=== PATIENT | female | born 2005 | race Caucasian/White ===

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

== ENCOUNTER 2023-07-22 13:58 | Emergency (ER) | payer OTHER ==
[2023-07-22] MEDS ORDERED: diphenhydrAMINE 50 MG/ML VIAL ONE (14:35)
[2023-07-22] MEDS ORDERED: Metoclopramide HCl 10 MG (2 mL) VIAL ONE (14:36)
[2023-07-22] MEDS ORDERED: Sodium Chloride 0.9% 1,000 ML ONE (14:36)
[2023-07-22 14:45] LABS: BHCG - Serum Negative (NEGATIVE); Pregs Control Bar Appear? YES (CONTROL BAR)
[2023-07-22] MEDS ORDERED: Ketorolac Tromethamine 30 MG (1 mL) VIAL ONE (15:31)
[2023-07-22] MEDS ORDERED: Ondansetron PF 4 MG/2 ML Vial ONE (16:25)
[2023-07-22] MEDS ORDERED: HYDROcodone/Acetaminophen 10/325 mg Tablet ONE (16:25)
[2023-07-22] MEDS ORDERED: Dexamethasone 4 mg/ml Vial ONE (16:25)
== END 2023-07-22 16:50 | disposition home or self-care (01) ==
LOC: NAV ERS 13:58
DX: G43.909 Migraine, unspecified, not intractable, without status migrainosus (principal); R11.0 Nausea; F17.290 Nicotine dependence, other tobacco product, uncomplicated
CPT/HCPCS: 84703; 94760; 96374; 96375; J1100; J1200; J1885; J2405; J2765; J7050

== ENCOUNTER 2023-10-14 20:27 | Emergency (ER) | payer OTHER ==
[2023-10-14 21:14] LABS: SARS-CoV-2 E Target Negative; SARS-CoV-2 N2 Target Negative; SARS-CoV-2 NAA Rapid Test Not Detected (NotDetected); SARS-CoV-2 RdRP gene Negative
[2023-10-14] MEDS ORDERED: Ondansetron ODT 4 MG TAB ONE (21:27)
== END 2023-10-14 21:35 | disposition home or self-care (01) ==
LOC: NAV ERS 20:27
DX: A08.4 Viral intestinal infection, unspecified (principal)
CPT/HCPCS: 87804; 99284; Q0162; U0002

== ENCOUNTER 2024-01-05 18:26 | Emergency (ER) | payer OTHER, SELFPAY ==
[2024-01-05] MEDS ORDERED: Boostrix 0.5 ML (Tdap) VIAL (>/=7 yrs of age) ONE (18:40)
[2024-01-05] MEDS ORDERED: Bacitracin 1 PK ONE (19:33)
== END 2024-01-05 19:42 | disposition home or self-care (01) ==
LOC: NAV ERS 18:26
DX: S61.412A Laceration without foreign body of left hand, initial encounter (principal); Z23 Encounter for immunization; W25.XXXA Contact with sharp glass, initial encounter
CPT/HCPCS: 12001; 90471; 90715

== ENCOUNTER 2024-04-08 06:56 | Emergency (ER) | payer OTHER, SELFPAY ==
[2024-04-08 07:48] LABS: #Basophils 0.1 thou/uL (0.0-0.2); #Eosinophils 0.3 thou/uL (0.0-0.7); #Lymphocytes 2.3 thou/uL (1.20-3.40); #Neutrophils 8.8 thou/uL (1.40-6.50); %Basophils 0.6 % (0.0-1.0); %Eosinophils 2.1 % (0.0-10.0); %Lymphocytes 18.4 % (28.0-48.0); %Monocytes 8.3 % (0.0-4.0); %Neutrophils 70.6 % (31.0-61.0); Hematocrit 40.9 % (36.0-47.0); Hemoglobin 13.6 g/dL (12.0-16.0); Mean Corpuscular HGB CONC 33.3 g/dL (32.0-36.0); Mean Corpuscular Hemoglobin 28.7 pg (25.0-35.0); Mean Corpuscular Volume 86.3 fl (78.0-98.0); Mean Platelet Volume 6.3 fL (7.4-10.4); Platelet Count 360 10x3/uL (130-400); RBC Distribution Width 11.1 % (11.5-14.5); Red Blood Cell (RBC) Count 4.74 mill/uL (4.00-5.20); White Blood Cell (WBC) Count 12.5 10x3/uL (4.8-10.8)
[2024-04-08] MEDS ORDERED: Acetaminophen 500 MG TAB ONE (07:51)
[2024-04-08] MEDS ORDERED: Ipratropium/Albuterol 3 ML NEB ONE (07:51)
[2024-04-08] MEDS ORDERED: Dexamethasone 10 MG/ML VIAL ONE (07:52)
[2024-04-08 08:02] LABS: ALT (SGPT) 35 U/L (8-55); AST (SGOT) 31 U/L (5-34); Albumin 3.6 g/dL (3.5-5.0); Alkaline Phosphatase 70 U/L (40-100); Anion Gap 12 mmol/L (10-20); BUN (Urea Nitrogen) 13 mg/dL (7.0-18.7); Bilirubin, Total 0.4 mg/dL (0.2-1.2); Calc. Creatinine Clearance 0 mL/min (70-130); Calcium 9.3 mg/dL (7.8-10.44); Carbon Dioxide 25 mmol/L (22-29); Chloride 104 mmol/L (98-107); Estimated GFR 111; Globulin 4.2 g/dL (2.4-3.5); Glucose 84 mg/dL (70-105); Potassium 3.9 mmol/L (3.5-5.1); Protein, Total 7.8 g/dL (6.0-8.3); Sodium 137 mmol/L (136-145)
[2024-04-08 08:03] LABS: Troponin I Less than 0.010 ng/mL (< 0.028)
[2024-04-08] MEDS ORDERED: guaiFENesin/Codeine 200 mg/20 mg 10 ml Cup ONE (08:06)
[2024-04-08 08:33] LABS: BHCG - Serum Negative (NEGATIVE); Pregs Control Bar Appear? YES (CONTROL BAR)
[2024-04-08] MEDS ORDERED: Ondansetron PF 4 MG/2 ML Vial ONE (08:59)
[2024-04-08] MEDS ORDERED: Iopamidol 370 76% 100 ML VIAL ONE (09:00)
== END 2024-04-08 10:00 | disposition home or self-care (01) ==
LOC: NAV ERS 06:56
DX: B34.9 Viral infection, unspecified (principal); J06.9 Acute upper respiratory infection, unspecified; R09.1 Pleurisy; Z86.711 Personal history of pulmonary embolism; Z86.718 Personal history of other venous thrombosis and embolism
CPT/HCPCS: 71275; 80053; 83605; 83880; 84484; 84703; 85025; 87081; 87428; 87430; 93005; 96361; 96372; 96374; J1100; J2405; J7620; Q9967

== ENCOUNTER 2025-03-10 09:03 | Emergency (ER) | payer OTHER, SELFPAY ==
[2025-03-10] MEDS ORDERED: Metoclopramide HCl 10 MG (2 mL) VIAL ONE (09:36)
[2025-03-10] MEDS ORDERED: Ondansetron PF 4 MG/2 ML Vial ONE (09:36)
[2025-03-10 09:45] LABS: Hematocrit 39.0 % (36.0-47.0); Hemoglobin 13.1 g/dL (12.0-16.0); Red Blood Cell (RBC) Count 4.49 mill/uL (4.20-5.40); White Blood Cell (WBC) Count 6.4 10x3/uL (4.8-10.8)
[2025-03-10 09:46] LABS: #Basophils 0.0 thou/uL (0.0-0.2); #Eosinophils 0.2 thou/uL (0.0-0.7); #Lymphocytes 2.4 thou/uL (1.20-3.40); #Monocytes 0.6 thou/uL (0.11-0.59); #Neutrophils 3.2 thou/uL (1.40-6.50); %Basophils 0.4 % (0.0-1.0); %Eosinophils 2.4 % (0.0-10.0); %Lymphocytes 37.3 % (21.0-51.0); %Monocytes 9.7 % (0.0-10.0); %Neutrophils 50.1 % (42.0-75.0); Manual Diff?? NO; Mean Corpuscular Hemoglobin 29.1 pg (27.0-31.0); Mean Corpuscular Volume 86.9 fl (78.0-98.0); Platelet Count 327 10x3/uL (130-400)
[2025-03-10 09:47] LABS: BHCG - Serum Negative (NEGATIVE); Pregs Control Bar Appear? YES (CONTROL BAR)
[2025-03-10 09:50] LABS: ALT (SGPT) 15 U/L (Less than 34); AST (SGOT) 25 U/L (11-34); Albumin 4.2 g/dL (3.1-4.5); Alkaline Phosphatase 75 U/L (40-110); Anion Gap 13 mmol/L (10-20); BUN (Urea Nitrogen) 15 mg/dL (7.0-18.7); Bilirubin, Total 0.5 mg/dL (0.3-1.2); Calc. Creatinine Clearance 0 mL/min (70-130); Calcium 9.5 mg/dL (7.8-10.44); Carbon Dioxide 23 mmol/L (22-29); Chloride 107 mmol/L (98-107); Globulin 3.3 g/dL (2.4-3.5); Glucose 98 mg/dL (70-105); Potassium 4.0 mmol/L (3.5-5.1); Sodium 139 mmol/L (136-145)
[2025-03-10] MEDS ORDERED: Ketorolac Tromethamine 30 MG (1 mL) VIAL ONE (10:35)
== END 2025-03-10 11:36 | disposition home or self-care (01) ==
LOC: NAV ERS 09:03
DX: G43.909 Migraine, unspecified, not intractable, without status migrainosus (principal); Z79.899 Other long term (current) drug therapy
CPT/HCPCS: 80053; 84703; 85025; 96374; 96375; J1885; J2405; J2765; J2919; J7030